=== PATIENT | male | born 1980 | race Caucasian/White ===

== ENCOUNTER 2020-08-18 18:39 | Emergency (ER) | payer OTHER, SELFPAY ==
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
[2020-08-18 18:45] VITALS: BP 199/117; PULSE 119; RESP 18; TEMP 37.2; O2SAT 100; BMI 29.9
[2020-08-18 19:16] VITALS: BP 165/107; PULSE 137; RESP 14; TEMP 36.4; O2SAT 95
--- NOTE | 2020-08-18 19:36 | ECG_ITS ---
Test Reason : tachycardic Blood Pressure : / mmHG Vent. Rate : 109 BPM Atrial Rate : 109 BPM P-R Int : 148 ms QRS Dur : 096 ms QT Int : 360 ms P-R-T Axes : 048 013 031 degrees QTc Int : 484 ms Sinus tachycardia Possible Left atrial enlargement Borderline ECG No previous ECGs available Referred By: Yifan Villarreal Electronically Signed By:CASEY WANG MD
--- NOTE | 2020-08-18 19:42 | PC.NURSE ---
pt taken to ct. pt will be moved to be placed on a monitored bed for hr 130.
[2020-08-18] MEDS: LORazepam 1 MG TABLET PO (19:58)
[2020-08-18] MEDS: Acetaminophen 325 MG TABLET 650 MG PO (19:58)
[2020-08-18] MEDS: Diphth,Pertus(ACell),Tet Adult 0.5 ML SYRINGE IM (20:03)
[2020-08-18 20:07] VITALS: BP 158/112; PULSE 109; RESP 16; O2SAT 99
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
--- NOTE | 2020-08-18 21:34 | PC.NURSE ---
Discharge summary went over with patient. Advised the patient to follow up with Dr. Kasi Hirsch in two days and this RN went over the medications that were sent to the patients pharmacy. Patient had no questions at this time, steady on his feet and ambulatory out of the emergency room doors.
== END 2020-08-18 21:37 | disposition home or self-care (01) ==
PROVIDERS: Emergency Provider Emergency Medicine; PCP Internal Medicine
DX: S02.2XXA Fracture of nasal bones, initial encounter for closed fracture (principal); S01.01XA Laceration without foreign body of scalp, initial encounter; G44.309 Post-traumatic headache, unspecified, not intractable; M54.2 Cervicalgia; M54.5 Low back pain; W01.10XA Fall on same level from slipping, tripping and stumbling with subsequent striking against unspecified object, initial encounter; Y93.02 Activity, running; Y92.410 Unspecified street and highway as the place of occurrence of the external cause; Y99.9 Unspecified external cause status; F17.200 Nicotine dependence, unspecified, uncomplicated; Z71.6 Tobacco abuse counseling; Z79.899 Other long term (current) drug therapy; Z23 Encounter for immunization
CPT/HCPCS: 12001; 70450; 70486; 72125; 90471; 90715; 93005; 99284

== ENCOUNTER 2022-01-09 18:41 | Outpatient (REF) | payer OTHER, SELFPAY ==
--- NOTE | ~2022-01-09 | MR_ITS ---
EXAMINATION: MR LUMBAR SPINE WITHOUT CONTRAST CLINICAL INFORMATION: Radiculopathy. The patient states dropped foot right foot and low back pain. COMPARISON: There are no prior studies available for comparison at time of dictation. TECHNIQUE: MRI of the lumbar spine was obtained using routine sequences without contrast. FINDINGS: VERTEBRAL BODIES AND PARASPINAL STRUCTURES: There are moderate retrolistheses of L1 on L2 through L5 on S1. There is multilevel narrowing of intervertebral disc height with loss of signal which is most severe at L4-L5 and L5-S1. There are multilevel degenerative endplate contrast changes. There are edematous endplate signal changes at L4-L5 and there are fatty endplate changes at L5-S1. There are Schmorl's nodes at multiple levels in the mid and upper lumbar spine. Vertebral body heights are maintained and no fractures are demonstrated. Overall, marrow signal is homogenous. The visualized retroperitoneal and pelvic structures are unremarkable. There are mildly prominent subcutaneous vessels in the left lower lumbar spine. CONUS MEDULLARIS AND CAUDA EQUINA: Normal, terminating at the level of L1-L2. The lower thoracic spinal cord appears normal. The cauda equina nerve roots and filum terminale appear normal. SPINAL LEVELS: L1-L2: There is moderate bilateral facet arthropathy with ligamenta flava hypertrophy. There is a central and right paracentral disc protrusion with extruded component extending behind the body of L2 with distortion of the ventral thecal sac but there is no central stenosis. There is no foraminal nerve root impingement. L2-L3: There is moderate bilateral facet arthropathy. There is a diffuse disc bulge with a more focal disc protrusion posteriorly in the midline and there is flattening of the ventral thecal sac with mild narrowing of the bilateral subarticular recesses. There is mild central stenosis. There is no foraminal nerve root impingement. L3-L4: There is moderately severe bilateral facet arthropathy and ligamentum hypertrophy. There is diffuse disc bulge with a more focal left paracentral disc protrusion/extrusion with distortion of the ventral thecal sac and with narrowing of the left greater than right subarticular recesses. There is a left foraminal disc protrusion impinging on the exiting left L3 nerve root. There is moderate to severe central stenosis. L4-L5: There is moderate to severe bilateral facet arthropathy. There is a broad-based posterior disc protrusion extending into the right greater than left neural foramina, and there is far lateral extension on the right with impingement on the exiting and extraforaminal right L4 nerve root. There is also large extruded component extending 1.8 cm caudad into the right subarticular recess and right lateral recess of L5 with mass effect on the traversing right L5 nerve root. There is compression of the thecal sac and there is moderate central stenosis. L5-S1: There is moderate bilateral facet arthropathy. There is a diffuse disc bulge with a more focal central disc protrusion extruding caudad behind the body of S1 with distortion of the ventral thecal sac. There is narrowing of the bilateral subarticular recesses and neural foraminal disc protrusions impinge on the exiting L5 nerve roots, more severe on the left and there is a left facet joint osteophyte narrowing the neural foramen superiorly. There is no central stenosis. MR/MR lumbar spine wo con IMPRESSION: 1. At L4-L5 there is bilateral facet arthropathy and there is a disc protrusion extending far laterally on the right with impingement on the exiting and extraforaminal right L4 nerve root. There is an extruded disc extending caudad on the right with mass effect on the traversing right L5 nerve root. There is moderate central stenosis. 2. At L3-L4 there is facet arthropathy and there is a left paracentral disc protrusion/extrusion with narrowing of the left greater than right subarticular recesses. A left femoral disc protrusion impinges on the exiting left L3 nerve root. There is moderate to severe central stenosis. 3. At L5-S1 there is facet arthropathy and there is a posterior disc protrusion with narrowing of the bilateral subarticular recesses, and neural foraminal disc protrusions impinge on the exiting L5 nerve roots. The left neural foramen is further narrowed by a left facet joint osteophyte. There is no central stenosis.
== END 2022-01-09 18:42 | disposition home or self-care (01) ==
LOC: HO.MRI 18:41
PROVIDERS: Visit Provider Physician Assistant
DX: M51.16 Intervertebral disc disorders with radiculopathy, lumbar region (principal)
CPT/HCPCS: 72148

== ENCOUNTER 2022-08-16 11:28 | Outpatient (REF) | payer OTHER, SELFPAY ==
[2022-08-16 12:40] LABS: Estimated Average Glucose 174 mg/dL; Hemoglobin A1c % 7.7 %
== END 2022-08-16 11:29 | disposition home or self-care (01) ==
LOC: HO.LAB 11:28
PROVIDERS: PCP Physician Assistant; Visit Provider Physician Assistant
DX: E11.9 Type 2 diabetes mellitus without complications (principal); Z79.4 Long term (current) use of insulin
CPT/HCPCS: 36415; 83036

== ENCOUNTER → 2022-09-08 10:25 | Outpatient (REF) | payer OTHER, SELFPAY ==
--- NOTE | 2022-09-08 10:27 | CA_ITS ---
Acquisition Time: 2022-09-08 10:42:27 Total Exercise Time: 00:03:16 Test Indications: chest pain Medications: SEE MED SHEET Protocol: DAVID Max HR: -01 BPM 0% of Pred: 180 BPM Max BP: */* mmHG Max Work Load: 1.0 METS Referred By: Pino Khan Overread By:
== END ==
LOC: HO.CARD 10:25
PROVIDERS: PCP Physician Assistant; Visit Provider Physician Assistant
DX: R07.9 Chest pain, unspecified (principal)
CPT/HCPCS: 93017

== ENCOUNTER 2022-11-22 11:05 | Outpatient (AMB) | payer OTHER, SELFPAY ==
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
[2022-11-22 11:06] VITALS: BP 148/98; PULSE 81; O2SAT 97; BMI 38.0
== END 2022-11-22 11:55 | disposition home or self-care (01) ==
PROVIDERS: PCP Physician Assistant; Visit Provider Physician Assistant
DX: E11.9 Type 2 diabetes mellitus without complications (principal); Z79.4 Long term (current) use of insulin; Z68.38 Body mass index [BMI] 38.0-38.9, adult; E66.01 Morbid (severe) obesity due to excess calories; M48.062 Spinal stenosis, lumbar region with neurogenic claudication
CPT/HCPCS: 83036; 99214

== ENCOUNTER 2023-01-29 09:43 | Outpatient (REF) | payer OTHER, SELFPAY ==
--- NOTE | ~2023-01-29 | MR_ITS ---
EXAMINATION: MR LUMBAR SPINE WITHOUT AND WITH CONTRAST CLINICAL INFORMATION: Previous lumbar surgery in June 2022. Patient with low back pain and right lower extremity radiculopathy. COMPARISON: MRI dated 01/09/2022. TECHNIQUE: Multiplanar, multisequence imaging was obtained. Intravenous contrast: Gadavist 10 mL. FINDINGS: VERTEBRAL BODIES AND PARASPINAL STRUCTURES: There is significant new endplate edema and enhancement lateralized to the right side at the L4-L5 level with a mild retrosubluxation and postsurgical changes from previous resection of a disc extrusion. There are no compression fractures or new subluxations. Multilevel endplate Schmorl's nodes and anterior ossific spurring noted with reduced intradiscal signal. The marrow signal is otherwise within normal limits. No paraspinal soft tissue fluid collections are seen. The imaged portions of the bony pelvis are unremarkable. Small bone island again visible in the right iliac crest. CONUS MEDULLARIS AND CAUDA EQUINA: The distal cord, conus tip, and cauda equina nerve roots are normal. No pathologic intradural enhancement is seen. SPINAL LEVELS: L1-L2: Central disc protrusion again visible with mild impression upon the ventral thecal sac. Hypertrophic facet arthropathy remains unchanged with mild central canal stenosis. Patent foramina. L2-L3: Anterior endplate spurring and diffuse disc bulge with a small central disc protrusion again noted. Stable facet arthropathy with mild central canal stenosis. No significant foraminal encroachment. L3-L4: Diffuse disc bulge and mild posterior subluxation again evident with a shallow, broad-based disc protrusion demonstrating mild caudal migration. Moderate facet arthropathy also again evident. The disc protrusion has partially resorbed and decreased in size with decreased mass effect upon the thecal sac. The residual disc protrusion continues to impress upon the left greater than right L4 nerve roots. Stable moderate central canal stenosis. Bulging disc and osseous spurring result in moderate left foraminal narrowing and [id number] right foraminal encroachment which is stable. L4-L5: Postsurgical changes, status post resection of the previous large disc extrusion in the right lateral recess of L5. There is focal T2 hypointense signal abnormality in the right lateral recess with mild mass effect upon the right L5 nerve root which is suspected to represent a small disc extrusion, best seen on axial T2 image . Broad-based posterior disc bulge present which mildly impresses upon the ventral thecal sac. Enhancing scar present in the laminectomy bed and in the right ventrolateral epidural space as well. Hypertrophic facet arthropathy without central canal stenosis. Moderate to severe bilateral foraminal narrowing with osseous spurring continue to impress upon the exiting L4 nerve roots, more so on the left side. L5-S1: Posterior subluxation and shallow, broad-based central disc protrusion. Previous extruded component of disc has partially resorbed and decreased in size. Disc material mildly encroaches upon the subarticular zones, more so on the left side, contacting the traversing S1 nerve roots. Hypertrophic facet arthropathy without central canal stenosis. Facet spurring impinges upon the left L5 nerve root in the neural foramen without change. Right posterolateral disc protrusion and facet spurring result in significant right foraminal encroachment. Right lateralized endplate spurring impresses upon the extraforaminal right L5 nerve root without change. MR/MR lumbar spine wo/w con IMPRESSION: Postsurgical changes at L4-L5, status post resection of a previous large disc extrusion in the right lateral recess of L5. New significant right lateralized endplate edema and enhancement. Suspected small recurrent disc extrusion in the right lateral recess with mild mass effect upon the right L5 nerve root. Additional epidural scar and fibrosis with soft tissue enhancement. Stable moderate to severe foraminal narrowing with osseous spurring impressing upon both L4 nerve roots. Previous extruded component of disc at L5-S1 has partially resorbed and decreased in size. Disc material mildly encroaches upon the subarticular zones with mass effect upon the S1 nerve roots, more so on the left side. Facet spurring and disc material continue to impress upon the L5 nerve roots in the neural foramina. Stable central disc protrusion at L1-L2 and L2-L3 with mild central canal stenosis. Broad-based central disc protrusion at L3-L4 has partially resorbed and decreased in size with decreased mass effect upon the thecal sac. Stable moderate central canal stenosis. Moderate left foraminal narrowing.
[2023-01-29] MEDS: gadobutroL 10 ML VIAL IVPUSH (11:55)
== END 2023-01-29 09:44 | disposition home or self-care (01) ==
LOC: HO.MRI 09:43
PROVIDERS: PCP Physician Assistant; Visit Provider Physician Assistant
DX: M48.062 Spinal stenosis, lumbar region with neurogenic claudication (principal)
CPT/HCPCS: 72158; A9585

== ENCOUNTER 2023-02-23 10:02 | Outpatient (AMB) | payer OTHER, SELFPAY ==
--- NOTE | 2023-02-23 10:10 | A.SPINEOV_ITS ---
Intake Intake Visit Reasons: spinal stenosis Intake Note: Mr. Wilson is here today c/o low back pain. MRI done @ [facility]. 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 This is a 42-year-old male who has history of a previous right L4-5 minimally invasive diskectomy using metrics tubes done by Dr. Swann at [facility] in May 2022 who presents today for evaluation of residual pain primarily in his right ankle going into his right foot that did not get better after surgery. He tells me that the whole situation started in October of 2021 when he was helping someone move furniture and later that day felt a severe intense 10/10 pain going down his right leg into his thigh, into his foot with numbness of his anterior foot, big toe and 2nd toe as well as weakness of his right dorsiflexion. He went through a series of conservative treatments and ultimately ended up with Dr. Swann doing the procedure listed above. He did have some improvement after surgery in the sense that the right leg pain did improve and the footdrop got slightly better but the right ankle and right foot pain did not. He tells me that it feels like an intense burning stabbing severe pain with numbness on the top of his foot that is there all the time. It wakes him up at night. He has been taking gabapentin, Suboxone, ibuprofen without any significant improvement in the symptoms. He does report some back pain but it is only mild. He tells me that he saw Dr. Swann and she said that he should discontinue to give it more time. He is seeing us today as a 2nd opinion. He had a postoperative MRI done showing some residual nerve compression but the large disc herniation seen before surgery was gone. PMH: Previous IV drug abuse, heroin, he has been off narcotics for 5 years, low back surgery, he had a mid back surgery where he had a superficial soft tissue removed which he thought might be contributing to his back pain, anxiety, GERD, hypertension, type 2 diabetes with his low last A1c being 7, but last year was as high as 12.. Social hx: He vapes, smokes marijuana daily Medications: Suboxone, gabapentin, ropinirole, ibuprofen, Tylenol, list Pro, Lantus Allergies: Seroquel Physical exam: He has a 2 to 3/5 right tibialis weakness, the rest of his leg strength and reflexes are normal. Imaging review: Lumbar MRI shows the ongoing degenerative disc disease. He has some moderate foraminal narrowing on the right at L5-S1 more in the far lateral component. There may be some slight lateral recess stenosis seen at L4-5. There other various degenerative changes seen as outlined in the report. I could not see the exact preoperative MRI but the radiologist reports that the large disc extrusion which was present is now gone. Impression: This is a 42-year-old gentleman who presented with large right L4-5 disc herniation last year and underwent lumbar microdiskectomy at L4-[address] Swann with successful removal of the herniated disc fragment at the time of surgery and on postoperative MRI who continues to have residual right foot pain with numbness to the top of his foot and weakness. The intense leg pain that he had before surgery is gone, but this residual ankle and foot pain with weakness and numbness is still giving him a tremendous amount of impact on his quality of life and ability to sleep, be active etc.. Dr. Swann who did the surgery told him just to continue to give it time but that there could be underlying nerve damage from the disc herniation. This certainly could be the case as he did present with weakness is numbness at the time of surgery. His postoperative MRI shows resolution of the large disc herniation at L4-5. There are other various moderate degenerative changes. There is some narrowing of the L5 foramen which could be part of his pain syndrome, however his story suggest that this is most likely nerve damage and residual pain as an after effect from that. I am going to send him for standing flexion-extension x-rays to rule out any occult instability that may not be present on the MRI. I am also going to send him for an EMG nerve study to see if there is any active radicular component or if this is truly just a chronic nerve damage situation. I will call him with the results. Thank you for allowing us to care for your patient. The total time spent with this visit with this patient was 45 minutes reviewing history, physical exam, lumbar MRI imaging review, and implementation of treatment plan or further diagnostic testing Aly Moreno MD,PhD [facility] Orders: Orders XR lumbar spine 4V min Today M51.16 - Intervertebral disc disorders with radiculopathy, lumbar region NE electromyogram (EMG) Today M51.16 - Intervertebral disc disorders with radiculopathy, lumbar region Coding Level of Care Code New Pt Level 4 (26137) Diagnoses Lumbar disc herniation with radiculopathy M51.16
== END 2023-02-23 10:52 | disposition home or self-care (01) ==
PROVIDERS: PCP Physician Assistant; Referring Provider Physician Assistant; Visit Provider Physician Assistant
DX: M51.16 Intervertebral disc disorders with radiculopathy, lumbar region (principal)
CPT/HCPCS: 99204

== ENCOUNTER 2023-02-23 10:02 | Outpatient (REF) | payer OTHER, SELFPAY ==
--- NOTE | ~2023-02-23 | XR_ITS ---
EXAMINATION: XR LUMBOSACRAL SPINE WITH OBLIQUES CLINICAL INFORMATION: Intervertebral disc disorder with radiculopathy COMPARISON: MRI lumbar spine 01/29/2023 TECHNIQUE: AP, lateral neutral, flexion and extension views of the lumbar spine. FINDINGS: Metallic clamp-like devices project over the pelvis and sacrum, limiting evaluation. Correlation with clinical exam recommended to determine etiology. Mild levoscoliosis of the lumbar spine. Facet arthritis in the lower lumbar spine. Advanced multilevel degenerative changes in the lumbar spine with hypertrophic change and multilevel loss of disc space height. Grade 1 retrolisthesis of L2 on L3, and of L3 on L4 persists on flexion and extension views. Advanced degenerative changes in the imaged lower thoracic spine. XR/XR lumbar spine 4V min IMPRESSION: Advanced multilevel lumbar spondylosis.
== END 2023-02-23 10:03 | disposition home or self-care (01) ==
LOC: HO.HOSX 10:02
PROVIDERS: PCP Physician Assistant; Referring Provider Physician Assistant; Visit Provider Physician Assistant
DX: M51.16 Intervertebral disc disorders with radiculopathy, lumbar region (principal)
CPT/HCPCS: 72110

== ENCOUNTER 2023-03-22 08:55 | Outpatient (REF) | payer OTHER, SELFPAY ==
--- NOTE | 2023-03-22 09:02 | EMG_ITS ---
Right tibial and peroneal motor studies were performed. Right superficial peroneal, sural, median, and lateral plantar sensory studies were performed. Tibial H-reflex was obtained, and needle examination was performed. IMPRESSION: 1. 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 2. Chronic right lower lumbar radiculopathy. MD LUIS E Garcia/LANCE / [id number]
== END 2023-03-22 08:56 | disposition home or self-care (01) ==
LOC: HO.NEURO 08:55
PROVIDERS: PCP Physician Assistant; Visit Provider Physician Assistant
DX: M51.16 Intervertebral disc disorders with radiculopathy, lumbar region (principal)
CPT/HCPCS: 95886; 95910